=== PATIENT | female | born 1945 | race Caucasian/White ===

== ENCOUNTER 2022-12-04 03:44 | Emergency (ER) | payer OTHER ==
[~2022-12-04] VITALS: Ht 162.6 cm; Wt 99.8 kg
[2022-12-04 03:55] VITALS: BP_SYST 135; PULSE 106; RESP 18; TEMP 98.1; O2SAT 92
[2022-12-04] MEDS ORDERED: LIDOCAINE PATCH 5% 1 EA TP ONE (04:30)
[2022-12-04] MEDS ORDERED: ACETAMINOPHEN 500 MG TABLET PO ONE (04:30)
[2022-12-04 05:18] LABS: BASOPHILS % (AUTO) 0.3 % (0.0-2.0); EOSINOPHILS # (AUTO) 0.1 K/uL (0.0-0.4); EOSINOPHILS % (AUTO) 0.7 % (0.0-4.0); HEMATOCRIT 43.9 % (36-48); HEMOGLOBIN 14.5 g/dL (12.0-16.0); LYMPHOCYTES # (AUTO) 1.7 K/uL (1.0-5.5); LYMPHOCYTES % (AUTO) 14.4 % (20.5-51.5); MEAN CORPUSCULAR HEMOGLOBIN 30 pg (27-31); MEAN CORPUSCULAR HGB CONC 33 % (32-36); MEAN CORPUSCULAR VOLUME 92 fL (79.0-98.0); MONOCYTES # (AUTO) 0.9 K/uL (0.0-1.0); MONOCYTES % (AUTO) 7.7 % (1.7-9.3); NEUTROPHILS # (AUTO) 9.2 K/uL (1.8-7.7); NEUTROPHILS % (AUTO) 76.9 % (40.0-70.0); PLATELET COUNT (AUTO) 229 K/uL (130-430); RED BLOOD CELL COUNT(AUTO) 4.75 MIL/uL (4.2-6.2); RED CELL DISTRIBUTION WIDTH 13.5 % (9.0-15.0)
[2022-12-04 05:39] LABS: ANION GAP 8 (5-15); CALCIUM 8.7 mg/dL (8.4-11.0); CARBON DIOXIDE 29 mmol/L (23-29); CHLORIDE 100 mmol/L (98-107); CREATININE 0.89 mg/dL (0.55-1.30); GLUCOSE 176 mg/dL (74-106); POTASSIUM 3.3 mmol/L (3.5-5.1); SODIUM SERUM 137 mmol/L (136-145); UREA NITROGEN, BLOOD 20 mg/dL (8-21)
[2022-12-04 05:43] LABS: ALANINE AMINOTRANSFERASE 60 U/L (12-78); ALBUMIN 3.5 g/dL (3.4-4.8); ASPARTATE AMINOTRANSFERASE 47 U/L (10-37); TOTAL BILIRUBIN 0.6 mg/dL (0.0-1.0); TOTAL PROTEIN, SERUM 6.9 g/dL (6.4-8.3)
[2022-12-04] MEDS ORDERED: MORPHINE 2 MG/ML INJ. SYRINGE IVP ONE (07:00)
[2022-12-04] MEDS ORDERED: HYDR-3917 PO (10:04)
[2022-12-04 10:26] VITALS: TEMP 97.8
[2022-12-04 11:05] VITALS: BP_SYST 159; PULSE 66; RESP 15; O2SAT 95
== END 2022-12-04 11:04 | disposition home or self-care (01) ==
LOC: SED 03:44
DX: M54.50 Low back pain, unspecified (principal); M25.552 Pain in left hip; R09.02 Hypoxemia; Z79.899 Other long term (current) drug therapy
CPT/HCPCS: 99285; 71275; 96374; 71045; 80053; 85025; 85379; 84484; 36415; 93005; 72170; 74175; 72191; 76376; J2270

== ENCOUNTER 2023-02-25 12:27 | Emergency (ER) | payer OTHER ==
[~2023-02-25] VITALS: Ht 162.6 cm; Wt 86.2 kg
[~2023-02-25 12:27] MED LIST: HYDR-3917 PO
[2023-02-25 12:30] VITALS: BP_SYST 136; PULSE 76; RESP 18; TEMP 98.2; O2SAT 96
[2023-02-25] MEDS ORDERED: KETOROLAC TROMETHAMINE 30 MG VIAL IM ONE ×2 (14:45→16:15)
[2023-02-25] MEDS ORDERED: DICL20GE TP (16:30)
[2023-02-25] MEDS ORDERED: DICL50TA9 PO (16:30)
[2023-02-25 16:46] VITALS: BP_SYST 136; PULSE 76; RESP 18; TEMP 98.2; O2SAT 96
== END 2023-02-25 16:45 | disposition home or self-care (01) ==
LOC: SED 12:27
DX: G89.29 Other chronic pain (principal); M54.50 Low back pain, unspecified; D25.9 Leiomyoma of uterus, unspecified; M79.652 Pain in left thigh; M25.552 Pain in left hip; Z79.899 Other long term (current) drug therapy
CPT/HCPCS: 99284; 72100; 73502; 96372; 72170; J1885